=== PATIENT | male | born 1960 | race Caucasian/White ===

== ENCOUNTER 2017-07-20 07:26 | Day surgery (SDC) | payer OTHER ==
[2017-07-17 07:32] VITALS: BMI 25.0
[~2017-07-20 07:26] MED LIST: FLU VACC QS2017-18 36 mo. & older 0.5 ML SYRINGE IM ONE
[2017-07-20 08:07] VITALS: BP 101/64; TEMP 97.6
--- NOTE | 2017-07-20 09:44 | RAD ---
FOUR VIEWS CERVICAL SPINE: DATE: 07/20/17. HISTORY: Radiculopathy. FINDINGS: Four views of the cervical spine demonstrate incompletely imaged midline sternotomy wires and transv enous pacing device. Alignment appears normal on the frontal and lateral imaging. Lateral imaging includes neutral, flexion, and extension views, which demonstrate no anterolisthesis or retrolisthes is and no prevertebral soft tissue swelling. IMPRESSION: No acute osseous abnormality. POS: [facility]
--- NOTE | 2017-07-20 10:00 | RAD ---
FRONTAL AND LATERAL IMAGING OF THORACIC SPINE: Date: 07/20/17 COMPARISON: None. HISTORY: Radiculopathy. FINDINGS: There is a single lead AICD inserted via left-sided approach. Midline sternotomy wires and mediastin al clips, as well as coronary arterial calcification and/or stent material present. There is multile junito mid thoracic spine and lower thoracic spine disc space narrowing, degenerative end plate change, and anterior osteophyte formation. There is no anterolisthesis or retrolisthesis seen. No acute fra cture is noted. IMPRESSION: Mid and lower thoracic spine degenerative change as described above. No acute osseous abnormality no lily. POS: [facility]
--- NOTE | 2017-07-20 10:25 | RAD ---
FOUR VIEWS OF THE LUMBAR SPINE: DATE: 07/20/17. COMPARISON: None. HISTORY: Radiculopathy. FINDINGS: Five lumbar-type vertebral bodies are present. There is atherosclerotic calcification of the abdomi nal aorta. The patient appears status post bilateral laminectomy at L4 and L5. There is no anterolisthesis or retrolisthesis noted within the lumbar spine on neutral, flexion, or extension lateral views. IMPRESSION: No acute osseous abnormality. Postoperative changes noted within the lower lumbar spine. Atheroscl erotic calcification abdominal aorta incidentally noted. POS: [facility]
--- NOTE | 2017-07-20 12:08 | RAD ---
CERVICAL AND THORACIC AND LUMBAR SPINE MYELOGRAM: DATE: 07/20/17. HISTORY: Prior lumbar spine surgery, recent fall, radiculopathy, back pain. FINDINGS: Informed consent for lumbar, thoracic, and cervical spine myelogram obtained prior to the procedure. The patient was placed on the fluoroscopic table in the prone position and the skin overlying the daniel mbar spine was prepped and draped in normal sterile fashion. The skin overlying the L4-5 level was anesthetized with 1% buffered Lidocaine. With intermittent fl uoroscopic guidance, a 22-gauge spinal needle was advanced into the thecal sac and removal of stylet te yields clear cerebrospinal fluid. Subsequently, approximately 12 cc of Isovue 300 was injected, outlining nerve roots of the cauda equ deepak and opacifying the thecal sac. The needle was removed. The patient's head was tilted down to e xtend contrast media into the thoracic and cervical spine regions. The patient tolerated the patien t tolerated the procedure well. EXPOSURE DATA: 3.5 minutes of fluoroscopic time, 1163.8 mGy*\S\m2. IMPRESSION: Successful myelogram of the cervical, thoracic, and lumbar spine. CT myelogram of the total spine pending. POS: [facility]
--- NOTE | 2017-07-20 12:22 | CT ---
CERVICAL SPINE CT MYELOGRAM: Date: 07/20/17 COMPARISON: 09/15/16. HISTORY: Pain, radiculopathy, fall. TECHNIQUE: Following the intrathecal administration of iodinated contrast media, axial CT imaging is obtained a t 2.5 mm intervals from the skull base through the upper thoracic spine. Coronal and sagittal reform atted imaging obtained. FINDINGS: There are stable mild degenerative changes at the atlantoaxial interspace. Cervical vertebral body h eight and alignment is within normal limits. Occipital condyles, dens, C1 ring, and C1-2 articulation appear within normal limits. C2-3: Mild facet hypertrophic change on the left with no central canal or neural foraminal stenosis. C3-4: Mild facet and uncovertebral osteophyte formation on the left with no significant central canal or n eural foraminal stenosis. C4-5: There is a small area of subchondral cystic change associated with the facet joint on the left, sugg esting degenerative change. No significant central canal or neural foraminal stenosis. C5-6: There is a small left paracentral disc protrusion with minimal effacement of the ventral thecal sac leading to no significant central canal or neural foraminal stenosis. There is mild right-sided face t hypertrophy. C6-7: Mild right-sided facet hypertrophy with no significant central canal or neural foraminal stenosis. C7-T1: Mild bilateral facet hypertrophy, left greater than right. No significant central canal or neural fo raminal stenosis. Central lobular and paraseptal emphysematous changes are incidentally noted within the imaged lung a pices. No worrisome lytic or blastic bone lesion. No acute osseous abnormality is seen. There is atherosclerotic calcification involving the right internal carotid artery proximally and th e distal aspect of the left CCA. IMPRESSION: No significant central canal or neural foraminal stenosis. Areas of cervical spine degenerative jay ge as documented above. POS: [facility]
--- NOTE | 2017-07-20 13:26 | CT ---
CT MYELOGRAM OF THORACIC SPINE: DATE: 07/20/17. COMPARISON: 09/15/16. HISTORY: Radiculopathy, pain, and fall. TECHNIQUE: Serial axial CT imaging at 3.75 mm intervals through the thoracic spine following the intrathecal ad ministration of iodinated contrast media. Coronal and sagittal reformatted imaging obtained. FINDINGS: C7-T1: No central canal or neural foraminal stenosis. T1-2: No central canal or neural foraminal stenosis. T2-3: No central canal or neural foraminal stenosis. T3-4: No central canal or neural foraminal stenosis. T4-5: No central canal or neural foraminal stenosis. T5-6: There is disk space narrowing and mild degenerative end plate change with no significant cent ral canal or neural foraminal stenosis. T6-7: Mild degenerative end plate change and anterior osteophyte formation with no significant cent ral canal or neural foraminal stenosis. T7-8: There is disk space narrowing and anterior osteophyte formation. There is mild bilateral fac et hypertrophy, right greater than left. There is no significant central canal or neural foraminal stenosis. T8-9: There is disk space narrowing and anterior osteophyte formation. There is mild bilateral fac et hypertrophy, right greater than left, with no significant central canal or neural foraminal steno sis. T9-10: Mild bilateral facet hypertrophy. Disk space narrowing and anterior osteophyte formation. No significant central canal or neural foraminal stenosis. T10-11: There is disk space narrowing and degenerative end plate change with anterior osteophyte fo rmation and a ventral vacuum disk. Mild bilateral facet hypertrophy. Mild bilateral neural foramin al stenosis. T11-12: There is disk space narrowing with an anterior vacuum disk and osteophyte formation. There is a disk-osteophyte complex which effaces the ventral thecal sac with a mild to moderate degree of central canal stenosis. There is a disk protrusion in the left paracentral region as well. This l eft paracentral disk protrusion causes significant left lateral recess stenosis. The patient is sta tus post bilateral T12 laminectomy since the prior examination. There is partial resection involvin g the inferior aspect of the spinous process of T11 as well since the prior examination. There is a linear lucency involving the pars intraarticularis at T12 bilaterally extending into the superior anterior aspect of the spinous process of T12 as well. This is new when compared to the pr ior examination. This is not definitely postoperative and could actually represent fracture associa lily with prior trauma. Clinical correlation is essential. T12-L1: There is disk space narrowing and mild disk bulge. There is mild bilateral facet hypertrop hy with no significant central canal or neural foraminal stenosis. The imaged lung parenchyma demonstrates scattered areas of bilateral upper lobe central lobular and subpleural emphysematous change. There is an adrenal mass on the right with Hounsfield units between 0 and 5, suggesting an adrenal a denoma. IMPRESSION: Postoperative and degenerative changes seen within the thoracic spine as detailed above. At the T11 -12 level, there is a disk-osteophyte complex with a small associated left paracentral disk protrusi on causing significant left lateral recess stenosis. In addition, there is a fracture involving the T12 pars intraarticularis bilaterally. CODE T POS: [facility]
--- NOTE | 2017-07-20 13:27 | CT ---
CT MYELOGRAM OF THE LUMBAR SPINE: DATE: 07/20/17. COMPARISON: 09/15/16. HISTORY: Pain, recent trauma, lumbar spine surgery since the prior lumbar spine myelogram: TECHNIQUE: Serial axial CT imaging is obtained at 2.5 mm intervals from lower thoracic spine through the inferi or aspect of the sacrum with intrathecal iodinated contrast media. Coronal and sagittal reformatted imaging obtained. FINDINGS: There is an acute fracture involving the anterior superior aspect of the T12 spinous process extendi ng into the pars intraarticularis bilaterally. No associated anterolisthesis or retrolisthesis seen . The conus medullaris terminates at the L1-2 level. T12-L1: Intervertebral disk height appears normal. There is mild bilateral facet hypertrophy with mild right-sided neural foraminal stenosis. No significant central canal or left neural foraminal s tenosis. L1-2: Mild bilateral facet hypertrophy. Mild left neural foraminal stenosis. No central canal or right neural foraminal stenosis. L2-3: Mild bilateral facet hypertrophy. No significant central canal or neural foraminal stenosis. L3-4: Bilateral facet hypertrophy present. Intervertebral disk height appears normal. Mild bilate ral neural foraminal stenosis, left greater than right. L4-5: Since the prior examination, there have been bilateral decompressive laminectomies at L4 and L5. At the L4-5 level, there is disk bulge with a small associated central disk protrusion, slightly les s prominent than on the prior examination. However, following posterior decompression, there is no significant central canal stenosis at L4-5. Mild bilateral neural foraminal stenosis persists. L5-S1: No significant central canal or neural foraminal stenosis. There are scattered atherosclerotic calcifications involving the abdominal aorta and its branches. Punctate calcifications are seen within the pancreas which could reflect change of chronic pancreati tis. IMPRESSION: 1. Postoperative and degenerative change is seen within the lumbar spine. 2. Fracture involving the spinous process and bilateral pars intraarticularis at T12, evidence of a chance-type fracture. This was discussed with Dr. Underwood at 10:00 a.m. 07/20/17. The patient was counseled on the presence of this fracture and, per Dr. Underwood's request, was told to see Dr. Underwood in clinical today to obtain a brace for stabilization. CODE CR POS: [facility]
[2017-07-20] MEDS ORDERED: Iopamidol-M 300 61% 15 ML VIAL ONE (15:50)
== END 2017-07-20 10:55 | disposition home or self-care (01) ==
LOC: RAD 07:26
PROVIDERS: ATTEND Physician Assistant Surgical
PROC: B01B1ZZ Fluoroscopy of Spinal Cord using Low Osmolar Contrast (ICD-10-PCS; principal; 2017-07-20)
DX: M54.12 Radiculopathy, cervical region (principal); M54.16 Radiculopathy, lumbar region; M54.6 Pain in thoracic spine; E11.42 Type 2 diabetes mellitus with diabetic polyneuropathy; I10 Essential (primary) hypertension; E78.5 Hyperlipidemia, unspecified; I25.10 Atherosclerotic heart disease of native coronary artery without angina pectoris; I25.5 Ischemic cardiomyopathy; Z79.82 Long term (current) use of aspirin; Z79.4 Long term (current) use of insulin; Z79.02 Long term (current) use of antithrombotics/antiplatelets; Z79.51 Long term (current) use of inhaled steroids; Z79.899 Other long term (current) drug therapy; Z88.0 Allergy status to penicillin; Z88.8 Allergy status to other drugs, medicaments and biological substances; Z95.1 Presence of aortocoronary bypass graft; Z95.810 Presence of automatic (implantable) cardiac defibrillator; Z98.890 Other specified postprocedural states; Z91.81 History of falling; Z87.891 Personal history of nicotine dependence
CPT/HCPCS: 62305; 72050; 72072; 72120; 72126; 72129; 72132; 90471; 90682; 90732; G0008; G0009; Q2036

== ENCOUNTER 2017-09-13 09:40 | Emergency (ER) | payer OTHER ==
[2017-09-13 10:19] LABS: #Eosinphils 0.1 thou/uL (0.0-0.7); #Lymphocytes 2.9 thou/uL (1.20-3.40); #Monocytes 0.8 thou/uL (0.11-0.59); #Neutrophils 7.2 thou/uL (1.40-6.50); %Basophils 0.4 % (0.0-1.0); %Eosinophils 0.9 % (0.0-10.0); %Lymphocytes 26.2 % (21.0-51.0); %Monocytes 7.5 % (0.0-10.0); %Neutrophils 64.9 % (42.0-75.0); Hemoglobin 14.5 g/dL (14.0-18.0); Mean Corpuscular HGB CONC 33.9 g/dL (32.0-36.0); Mean Corpuscular Hemoglobin 31.8 pg (27.0-31.0); Mean Corpuscular Volume 93.9 fl (80.0-94.0); Mean Platelet Volume 8.8 fL (7.4-10.4); Platelet Count 176 thou/uL (130-400); RBC Distribution Width 12.2 % (11.5-14.5); Red Blood Cell (RBC) Count 4.54 mill/uL (4.70-6.10)
[2017-09-13 10:26] LABS: PTT 24.9 SEC (22.9-36.1); Prothrombin Time 13.5 SEC (12.0-14.7)
[2017-09-13 10:39] LABS: ALT (SGPT) 17 U/L (8-55); AST (SGOT) 11 U/L (5-34); Albumin 4.2 g/dL (3.5-5.0); Alkaline Phosphatase 132 U/L (40-150); Anion Gap 13 mmol/L (10-20); BUN (Urea Nitrogen) 27 mg/dL (8.4-25.7); Bilirubin, Total 0.6 mg/dL (0.2-1.2); CK (CPK) 43 U/L (30-200); Calc. Creatinine Clearance 0 mL/min (70-130); Calcium 9.6 mg/dL (7.8-10.44); Carbon Dioxide 27 mmol/L (22-29); Chloride 100 mmol/L (98-107); Estimated GFR-MDRD 89; Globulin 2.7 g/dL (2.4-3.5); Glucose 287 mg/dL (70-105); Potassium 3.9 mmol/L (3.5-5.1); Protein, Total 6.9 g/dL (6.0-8.3); Sodium 136 mmol/L (136-145)
[2017-09-13 10:43] LABS: CKMB 1.3 ng/mL (0-6.6); Troponin I 0.106 ng/mL (< 0.028)
[2017-09-13] MEDS ORDERED: Acetaminophen 500 MG TAB ONE (12:01)
--- NOTE | 2017-09-13 12:07 | RAD ---
PORTABLE CHEST: HISTORY: Chest pain. COMPARISON: 04/19/2017 FINDINGS: The lungs are clear. No infiltrate. Heart size is normal. Postop sternotomy change. AICD lead not ed. IMPRESSION: No acute abnormality. No interval change. POS: [facility]
[2017-09-13 13:37] LABS: Troponin I 0.107 ng/mL (< 0.028)
--- NOTE | 2017-10-03 22:00 | EKG ---
Test Reason : Blood Pressure : / mmHG Vent. Rate : 070 BPM Atrial Rate : 070 BPM P-R Int : 136 ms QRS Dur : 114 ms QT Int : 402 ms P-R-T Axes : 056 049 137 degrees QTc Int : 434 ms Normal sinus rhythm Possible Left atrial enlargement Possible Inferior infarct , age undetermined Abnormal ECG Confirmed by KAYLENE CHUNG ([id number]), commercial production editor KENNA PHAN ([id number]) on 10/03/2017 9:59:43 PM Referred By: Confirmed By:KAYLENE CHUNG
--- NOTE | 2017-10-03 22:00 | EKG ---
Test Reason : Blood Pressure : / mmHG Vent. Rate : 054 BPM Atrial Rate : 054 BPM P-R Int : 140 ms QRS Dur : 114 ms QT Int : 440 ms P-R-T Axes : 037 048 150 degrees QTc Int : 417 ms Sinus bradycardia Possible Left atrial enlargement Possible Inferior infarct , age undetermined Abnormal ECG Confirmed by KAYLENE CHUNG ([id number]), science editor KENNA PHAN ([id number]) on 10/03/2017 9:59:46 PM Referred By: Confirmed By:KAYLENE CHUNG
== END 2017-09-13 14:29 | disposition home or self-care (01) ==
LOC: ERS 09:40
DX: R07.89 Other chest pain (principal); R79.89 Other specified abnormal findings of blood chemistry; E11.9 Type 2 diabetes mellitus without complications; E78.5 Hyperlipidemia, unspecified; I10 Essential (primary) hypertension; I25.2 Old myocardial infarction; F41.9 Anxiety disorder, unspecified; F43.10 Post-traumatic stress disorder, unspecified; F17.210 Nicotine dependence, cigarettes, uncomplicated
CPT/HCPCS: 36415; 71045; 80053; 82550; 82553; 84484; 85025; 85610; 85730; 93005; 94760

== ENCOUNTER 2017-10-05 09:30 | Emergency (ER) | payer OTHER | END 2017-10-05 09:53 | disposition left against medical advice (07) | LOC: ERS 09:30 | DX: Z53.21 Procedure and treatment not carried out due to patient leaving prior to being seen by health care provider (principal) ==

== ENCOUNTER 2017-11-09 14:04 | Outpatient (CLI) | payer OTHER ==
--- NOTE | 2017-11-09 16:55 | RAD ---
THORACIC SPINE FOUR VIEWS: History: Follow up T12 fracture. Comparison: 07-20-17 FINDINGS: Mild wedging of the lower thoracic vertebrae again noted. Mild wedging appears to represent physiolog ic degenerative changes and involves T9-T12. There are moderate anterior osteophytes at these levels. The changes at these lower thoracic vertebrae appear stable from 07-20-17. IMPRESSION: There are large degenerative changes in the mid and thoracic spine with mild anterior wedging of ganga ral lower thoracic vertebrae which appears stable from 07-20-17. POS: [facility]
== END 2017-11-09 14:05 | disposition home or self-care (01) ==
LOC: TBSIIMAG 14:04
PROVIDERS: ATTEND Surgery
DX: M54.5 Low back pain (principal); M47.894 Other spondylosis, thoracic region; M48.54XD Collapsed vertebra, not elsewhere classified, thoracic region, subsequent encounter for fracture with routine healing
CPT/HCPCS: 72072

== ENCOUNTER 2018-01-04 14:29 | Observation (INO) | payer OTHER ==
[2018-01-04 15:01] LABS: #Eosinphils 0.2 thou/uL (0.0-0.7); #Lymphocytes 1.7 thou/uL (1.20-3.40); #Monocytes 0.5 thou/uL (0.11-0.59); #Neutrophils 4.8 thou/uL (1.40-6.50); %Basophils 0.4 % (0.0-1.0); %Eosinophils 3.4 % (0.0-10.0); %Lymphocytes 23.3 % (21.0-51.0); %Neutrophils 65.9 % (42.0-75.0); Hemoglobin 14.7 g/dL (14.0-18.0); Mean Corpuscular HGB CONC 34.9 g/dL (32.0-36.0); Mean Corpuscular Hemoglobin 32.2 pg (27.0-31.0); Mean Corpuscular Volume 92.4 fl (80.0-94.0); Mean Platelet Volume 8.4 fL (7.4-10.4); Platelet Count 197 thou/uL (130-400); RBC Distribution Width 12.6 % (11.5-14.5); Red Blood Cell (RBC) Count 4.57 mill/uL (4.70-6.10); White Blood Cell (WBC) Count 7.3 thou/uL (4.8-10.8)
[2018-01-04 15:25] LABS: CKMB 1.6 ng/mL (0-6.6); Troponin I Less than 0.010 ng/mL (< 0.028)
[2018-01-04 15:29] LABS: ALT (SGPT) 13 U/L (8-55); AST (SGOT) 14 U/L (5-34); Albumin 4.2 g/dL (3.5-5.0); Alkaline Phosphatase 140 U/L (40-150); Anion Gap 15 mmol/L (10-20); BUN (Urea Nitrogen) 19 mg/dL (8.4-25.7); Bilirubin, Total 0.4 mg/dL (0.2-1.2); CK (CPK) 122 U/L (30-200); Calc. Creatinine Clearance 0 mL/min (70-130); Calcium 9.3 mg/dL (7.8-10.44); Carbon Dioxide 23 mmol/L (22-29); Chloride 104 mmol/L (98-107); Estimated GFR-MDRD 84; Globulin 3.2 g/dL (2.4-3.5); Glucose 239 mg/dL (70-105); Potassium 4.3 mmol/L (3.5-5.1); Protein, Total 7.4 g/dL (6.0-8.3); Sodium 138 mmol/L (136-145)
--- NOTE | 2018-01-04 15:32 | RAD ---
PA AND LATERAL OF THE CHEST: INDICATION: A 57-year-old male with chest pain. COMPARISON: Prior single view of the chest dated 09/13/17. FINDINGS: The single-lead AICD is unchanged. Midline sternotomy changes are stable. Heart size is normal. No acute airspace opacity, pleural effusion, or pneumothorax is demonstrated. There is multilevel spon dylosis of the thoracic spine. IMPRESSION: No acute cardiopulmonary abnormality. POS: [facility]
[2018-01-04 18:35] LABS: Troponin I Less than 0.010 ng/mL (< 0.028)
[2018-01-04 18:42] VITALS: BMI 25.4
[2018-01-04] MEDS ORDERED: Dextrose 50% Abboject 50 ML SYRINGE SLOW IVP PRN (19:01)
[2018-01-04] MEDS ORDERED: Senokot 8.6 MG TAB PO PRN (19:01)
[2018-01-04] MEDS ORDERED: PROVENTIL INHALER 6.7 G (200 INHALATIONS) INH PRN (19:01)
[2018-01-04] MEDS ORDERED: Acetaminophen 325 MG TAB PO PRN (19:01)
[2018-01-04] MEDS ORDERED: HumaLOG 300 UNITS/3 ML VIAL SC PRN ×2 (19:01)
[2018-01-04] MEDS ORDERED: Dextrose 5% in Water 1,000 ML IV PRN (19:01)
[2018-01-04] MEDS ORDERED: Guaifenesin DM 100-10/5 ML UDCUP PO PRN (19:01)
[2018-01-04] MEDS ORDERED: HYDROcodone/Acetaminophen 10/325 mg Tablet PO PRN (19:01)
[2018-01-04] MEDS ORDERED: PRE FILLED SC SCH (21:00)
[2018-01-04] MEDS ORDERED: Atorvastatin Calcium 40 MG TAB PO SCH (21:00)
[2018-01-04] MEDS ORDERED: INSULIN DETEMIR SC SCH (21:00)
[2018-01-04] MEDS ORDERED: clonazePAM 0.5 MG TAB PO SCH (21:00)
[2018-01-04] MEDS ORDERED: LEVEMIR 22 UNIT SC SCH (21:00)
[2018-01-04] MEDS ORDERED: traZODone HCl 50 MG TAB PO SCH (21:00)
[2018-01-04] MEDS: Famotidine 20 MG TAB PO SCH (21:03)
[2018-01-04 22:07] LABS: Troponin I 0.013 ng/mL (< 0.028)
--- NOTE | 2018-01-05 00:25 | HP ---
REASON FOR ADMISSION: Chest pain. HISTORY OF PRESENT ILLNESS: The patient gives history of walking back from his trailer house, which he is remodeling, to his home and developed retrosternal chest pain. This was radiating to the neck and his chin. He tried taking a nitroglycerin tablet sublingual with no relief. He took two more 5 minutes apart with mild relief. He finally called EMS and the patient was brought here. En route, EMS had to give him lidocaine IV push and had to place him on a drip for abnormal rhythm per the patient. I do not see the EMS strips accompanying the patient's chart. The patient says he felt like his heart beat was skipping in between when this happened. He is off lidocaine drip on arrival in the ER. Currently, he is chest-pain free. The patient sees Dr. Carolina and he was spoken to by the ER physician, Dr. Segura. The patient has prior history of CABG and has multiple-vessel disease, and Dr. Carolina would like to see him in the morning. No complaints of shortness of breath or PND. The patient has a history of chronic cough due to his smoking habit. He continues to smoke half pack a day. PAST MEDICAL AND SURGICAL HISTORY: History of CABG done 7 years back per the patient; prior cardiac catheterization done in 02/[address] Carolina and showed severe multivessel disease, LAD had 100% proximal occlusion, OM had 100% proximal occlusion, RCA had 100% occlusion, LARES to LAD was patent with back filling of the D2 branch, saphenous vein graft to D1 branch was patent, saphenous vein graft to suspected OM branch is occluded, there is also 70% proximal stenosis of the subclavian artery and may be causing ischemia to the LAD distribution, there was an 80 mm gradient present in the subclavian artery; diabetes mellitus type 2; coronary artery disease; chronic tobacco abuse; ischemic cardiomyopathy; AICD; right shoulder surgery; bilateral carpal tunnel surgery; had a T12 fracture a year back; back surgeries x2; elbow surgery; dyslipidemia. PERSONAL HISTORY: Smokes half pack a day. Does not abuse alcohol or drugs. Lives with his fiancee. FAMILY HISTORY: Mother at the age of 72 years. She has had history of coronary artery disease. Father at the age of 48 years. He was exposed to Agent [place] and had side effects from the same. ALLERGIES: Allergic to PENICILLIN and METFORMIN. CURRENT MEDICATIONS: Please note, the patient does not recall all his medications and wants us to refer to [employer] Aspirin 81 mg daily, Lipitor 80 mg p.o. at bedtime, baclofen 10 mg 3 times daily, Coreg 3.125 mg daily, cetirizine 10 mg daily, clonazepam 0.5 mg p.o. at bedtime, Plavix 75 mg p.o. daily, Humalog 15 units subcu 3 times daily, Levemir 25 units subcu q.a.m. and 22 units subcu at bedtime, Imdur extended release 30 mg p.o. daily, [place] 10/ 325 mg twice daily p.r.n., lisinopril 5 mg daily, Protonix 40 mg daily, prazosin 1 mg daily, Lyrica 150 mg 3 times daily, Risperdal 2 mg at bedtime, Requip extended release 0.5 mg at bedtime, trazodone 100 mg p.o. at bedtime. REVIEW OF SYSTEMS: The following complete review of systems was negative, unless otherwise mentioned in the HPI or below: Constitutional: Weight loss or gain, ability to conduct usual activities. Skin: Rash, itching. Eyes: Double vision, pain. ENT/Mouth: Nose bleeding, neck stiffness, pain, tenderness. Cardiovascular: Palpitations, dyspnea on exertion, orthopnea. Respiratory: Shortness of breath, wheezing, cough, hemoptysis, fever or night sweats. Gastrointestinal: Poor appetite, abdominal pain, heartburn, nausea, vomiting, constipation, or diarrhea. Genitourinary: Urgency, frequency, dysuria, nocturia. Musculoskeletal: Pain, swelling. Neurologic/Psychiatric: Anxiety, depression. Allergy/Immunologic: Skin rash, bleeding tendency. PHYSICAL EXAMINATION: GENERAL: The patient is a 57-year-old male who is currently not in any acute distress. VITAL SIGNS: Blood pressure 140/70, pulse 70 per minute, respiratory rate 18 per minute, temperature 97.6 degrees Fahrenheit, saturating 99% on room air. NECK: Supple. No elevated JVD. HEENT: Eyes, extraocular muscles intact. Pupils are reacting to light. Oral cavity, mucous membranes are dry. No exudates or congestion. CARDIOVASCULAR: S1, S2 heard. Regular rhythm. RESPIRATORY: Air entry 1+ bilateral. Scattered rhonchi plus. No rales. ABDOMEN: Soft. Bowel sounds heard. No tenderness, rigidity, or guarding. EXTREMITIES: No peripheral edema or calf tenderness. VASCULAR SYSTEM: Peripheral pulses 1+ bilateral. No ischemic ulcerations or gangrene. CENTRAL NERVOUS SYSTEM: No gross focal deficit seen. The patient is alert, awake, and oriented well. PSYCHIATRIC: The patient's mood is euthymic. No hallucinations or delusions. LABORATORY AND X-RAY FINDINGS: EKG done shows normal sinus rhythm at 64 beats per minute. QRS duration is 118 milliseconds, corrected QT interval is 425 milliseconds. There is poor R-wave progression. White count of 7, H&H 14 and 42, platelet count 197, MCV is 92 with 65% neutrophils. Electrolytes are stable. BUN 19, creatinine 0.9, glucose 239. Troponin x2 is negative. CK level is 122, CK-MB 1.6, albumin is 4.2. Chest x-ray done shows no acute cardiopulmonary abnormality. CLINICAL IMPRESSION AND PLAN: The patient will be under observation on telemetry for chest pain, rule out acute coronary syndrome. The patient has known history of coronary artery disease with prior CABG and multivessel coronary artery disease for medical therapy. He has had coronary angiogram done in 02/2016, which I have described above in the past medical history. We will keep him n.p.o. after midnight. If the patient were to develop chest pain , he likely will need angiogram. He has had a stress test done in 04/2017, which showed global hypokinesis with inferior wall akinesis. There was a large lateral and inferior wall scar with ton-infarct ischemia of the lateral wall. His EF was 20%-30% on the stress test. The patient will be placed on aspirin, Plavix, small dose of Coreg, lisinopril as before. He will also be on Imdur. We will continue his trazodone at bedtime; [place]; Levemir, home dose; and Pepcid 20 mg twice daily. The patient's home medications will be confirmed with his pharmacy in the morning. We will obtain pacemaker printout to see what really happened when EMS went to pick him up, with them giving a dose of lidocaine IV push, then placing him on lidocaine drip. It is unclear at present and we will closely follow up on that. [facility]
[2018-01-05 04:29] LABS: #Basophils 0.1 thou/uL (0.0-0.2); #Eosinphils 0.3 thou/uL (0.0-0.7); #Lymphocytes 1.9 thou/uL (1.20-3.40); #Monocytes 0.5 thou/uL (0.11-0.59); %Basophils 0.9 % (0.0-1.0); %Eosinophils 4.8 % (0.0-10.0); %Lymphocytes 28.2 % (21.0-51.0); %Monocytes 7.9 % (0.0-10.0); %Neutrophils 58.3 % (42.0-75.0); Hemoglobin 14.5 g/dL (14.0-18.0); Mean Corpuscular Hemoglobin 31.3 pg (27.0-31.0); Mean Corpuscular Volume 91.8 fl (80.0-94.0); Mean Platelet Volume 8.4 fL (7.4-10.4); Platelet Count 169 thou/uL (130-400); RBC Distribution Width 12.7 % (11.5-14.5); Red Blood Cell (RBC) Count 4.64 mill/uL (4.70-6.10); White Blood Cell (WBC) Count 6.8 thou/uL (4.8-10.8)
[2018-01-05 04:47] LABS: Anion Gap 12 mmol/L (10-20); BUN (Urea Nitrogen) 18 mg/dL (8.4-25.7); Calc. Creatinine Clearance 119 mL/min (70-130); Calcium 8.9 mg/dL (7.8-10.44); Carbon Dioxide 23 mmol/L (22-29); Chloride 109 mmol/L (98-107); Estimated GFR-MDRD Greater than 90; Glucose 87 mg/dL (70-105); Potassium 3.9 mmol/L (3.5-5.1); Sodium 140 mmol/L (136-145)
[2018-01-05] MEDS ORDERED: Carvedilol 3.125 MG TAB PO SCH (08:00)
[2018-01-05] MEDS ORDERED: Non-Formulary Item 1 EACH (Levemir Flexpen [Levemir Flexpen] 25 UNIT) SC SCH (09:00)
[2018-01-05] MEDS ORDERED: Lisinopril 5 MG TAB PO SCH (09:00)
[2018-01-05] MEDS ORDERED: Clopidogrel Bisulfate 75 MG TAB PO SCH (09:00)
[2018-01-05] MEDS ORDERED: Aspirin 81 mg Enteric Coated Tablet PO SCH (09:00)
[2018-01-05] MEDS ORDERED: Insulin Detemir 100 UNITS/ML 25 UNITS in Pre-Filled Syringe SC SCH (09:00)
[2018-01-05] MEDS ORDERED: Prazosin HCl 1 MG CAP PO SCH (09:00)
[2018-01-05] MEDS ORDERED: Enoxaparin Sodium 40 MG/0.4 ML SYRINGE SC SCH (09:00)
[2018-01-05] MEDS: Famotidine 20 MG TAB PO SCH (09:05)
[2018-01-05] MEDS ORDERED: Carvedilol 6.25 MG TAB PO SCH ×2 (09:15→17:00)
--- NOTE | 2018-01-05 09:18 | CON ---
DATE OF CONSULTATION: 01/05/2018 REASON FOR CONSULTATION: Chest pain. HISTORY OF PRESENT ILLNESS: Mr. Whitfield is an unfortunate 57-year-old male with a history of CAD st atus bypass surgery. I recently reviewed his films. He has a LARES to the LAD that is patent. His s aphenous vein graft to the OM branch is occluded. Saphenous vein graft to the right coronary artery is occluded. He has occluded right and circumflex artery. He also had severe stenosis of the subcla vian artery that involved the vertebral artery. Unfortunately, Mr. Whitfield continues to smoke. Mr. Whitfield recently presented with chest pain. It was described as moderate to severe. He took 3 sublingual nitroglycerins without improvement; therefore called EMS. There is a history of a rhythm disturbance noted while in the ambulance. He was given lidocaine. He is currently chest pain free n ow. PAST MEDICAL HISTORY: CAD status post bypass surgery, subclavian stenosis, tobacco abuse, ischemic c ardiomyopathy, ICD placement, hypertension, hyperlipidemia, diabetes mellitus, shoulder surgery, carp al tunnel release. FAMILY HISTORY: Positive for CAD. SOCIAL HISTORY: As above. ALLERGIES: PENICILLIN, METFORMIN. HOME MEDICATIONS: Klonopin, lisinopril, trazodone, carvedilol, simvastatin, Protonix, Requip, Imdur , albuterol, metoprolol. REVIEW OF SYSTEMS: Ten point review of systems is reviewed and is as above, otherwise negative. PHYSICAL EXAMINATION: VITAL SIGNS: Blood pressure 126/56, pulse 70, temperature 97.6. GENERAL: Patient is a pleasant male who is in no acute distress. The patient appears his stated age. NEUROLOGIC: The patient is alert and oriented times 3 with no focal neurologic deficits. HEENT: Sclerae without icterus. Mouth has moist mucous membranes with normal pallor. NECK: No JVD. Carotid upstroke brisk. No bruits bilaterally. LUNGS: Clear to auscultation with unlabored respirations. BACK: No scoliosis or kyphosis. CARDIAC: Regular rate and rhythm with normal S1 and S2. No S3 or S4 noted. No significant rubs, mur murs, thrills, or gallops noted throughout the precordium. PMI is not displaced. There is no parast ernal heave. ABDOMEN: Soft, nontender, nondistended. No peritoneal signs present. No hepatosplenomegaly. No abn ormal striae. EXTREMITIES: 2+ femoral and 2+ dorsalis pedis pulses. No cyanosis, clubbing, or edema. SKIN: No gross abnormalities. PERTINENT LABS: CK and troponin negative. Hemoglobin 14.5. IMPRESSION: 1. Chronic stable angina. 2. Tobacco abuse. 3. Coronary artery disease. 4. Ischemic cardiomyopathy. RECOMMENDATIONS: Unfortunately there are no good options for Mr. Whitfield. I am uncertain on where his pain is coming from. I did review his films today. He has complete occlusion of the right harshil nary artery with no vein graft present. This is not approachable percutaneously. He also has a comp letely occluded circumflex artery with a complete occlusion of a previous stent. There is no graft p resent to this area. He also had severe stenosis to the subclavian artery. After reviewing his stre ss study, there was no ischemia present to the anterior wall and mainly scar and ton-infarct ischemi a to the inferior and lateral wall which corresponds to the right coronary artery and circumflex cesilia ry distribution. At this point, would recommend medical therapy. I do not feel proceeding with a st ent placement to the subclavian artery would be of much benefit. This would also gel a vertebral art chapito, there appears to be within the area of concern and also has ostial disease. It would be a risk of closure of the vertebral artery. We will also interrogate his ICD. Increase carvedilol to 6.25 b .i.d. Continue Plavix, aspirin and increase isosorbide to 60 mg daily.
--- NOTE | 2018-01-05 13:31 | PDOC.PN ---
- Subjective Encounter Start Date: 01/05/18 Encounter Start Time: 13:29 Mr. Whitfield was seen today in follow-up. He does not have any complaints except that he has " no energy". He denies chest pain. - Objective Resuscitation Status: Resuscitation Status FULL:Full Resuscitation MAR Reviewed: Yes Vital Signs & Weight: Vital Signs (12 hours) Temp Pulse Resp BP BP Pulse Ox 01/05/18 11:40 97.9 F 66 12 117/59 L 92 L 01/05/18 09:26 126/59 L 01/05/18 09:05 70 01/05/18 08:01 97.6 F 70 16 126/56 L 94 L 01/05/18 07:32 97.9 F 69 12 01/05/18 04:10 97.9 F 69 12 110/59 L 94 L Weight Weight 161 lb 11.2 oz I&O: 01/04/18 01/05/18 01/06/18 06:59 06:59 06:59 Intake Total 0 Output Total 0 Balance 0 Result Diagrams: 01/05/18 04:12 01/05/18 04:12 Additional Labs: Accuchecks 01/05/18 01/04/18 11:53 22:25 POC Glucose 215 H 293 H Phys Exam - Physical Examination HEENT: PERRLA Respiratory: no wheezing, no rales, no rhonchi, clear to auscultation bilateral Cardiovascular: RRR, no significant murmur, no rub Gastrointestinal: soft, non-tender, no distention, positive bowel sounds Musculoskeletal: no edema Dx/Plan (1) Angina at rest Code(s): I20.8 - OTHER FORMS OF ANGINA PECTORIS Status: Acute (2) Coronary artery disease Code(s): I25.10 - ATHSCL HEART DISEASE OF [place] CORONARY ARTERY W/O ANG PCTRS Status: Acute (3) Hyperlipidemia Code(s): E78.5 - HYPERLIPIDEMIA, UNSPECIFIED Status: Chronic (4) Hypertension Code(s): I10 - ESSENTIAL (PRIMARY) HYPERTENSION Status: Chronic - Plan * CAD- Cardiology evaluation appreciated * Patient is stable for discharge on adjusted medications..
[2018-01-05 15:47] VITALS: BP 112/57; TEMP 98
--- NOTE | 2018-01-05 21:33 | DIS ---
PRIMARY CARE PHYSICIAN: TYREE Gayle. DATE OF ADMISSION: 01/04/2018 DATE OF DISCHARGE: 01/05/2018 DISCHARGE DISPOSITION: Home. PRIMARY DISCHARGE DIAGNOSES: 1. Coronary artery disease. 2. Hypertension. 3. Dyslipidemia. DISCHARGE MEDICATIONS: The patient's medications were slightly adjusted. His Coreg dose was increas ed to 6.25 mg daily, Imdur was increased from 30 to 60 mg daily. He is to continue trazodone 150 mg at bedtime, Requip 0.5 mg at bedtime, Lyrica 150 mg at bedtime, Protonix 40 mg daily, lisinopril 5 mg daily, Levemir 18 units twice a day, [place] 10/325 t.i.d. as needed, Flonase nasal spray daily, Plavi x 75 mg daily, clonazepam 1 mg at bedtime, Zyrtec 10 mg daily, Soma 350 mg twice a day as needed, Lip itor 80 mg at bedtime, aspirin 81 mg daily, and ProAir inhaler 2 puffs as needed. CODE STATUS: FULL CODE. ALLERGIES: PENICILLIN and METFORMIN. HOSPITAL COURSE: Mr. Whitfield is a pleasant 57-year-old gentleman that presented to the emergency ro om with complaints of chest pain. He has known multivessel coronary artery disease. He was placed i n observation and evaluated by his fbi profiler. The patient has a history of a completely occluded circumflex graft and an occlusion of a previous stent. He also has severe occlusion of the subclavia n and he has a complete occlusion of the right coronary artery with no graft present. Unfortunately, he is not amenable to any invasive procedures and medical management was recommended. Therefore, Im dur was increased as well as carvedilol. The patient at the time of discharge was clinically improve d and will be discharged home with close outpatient followup.
== END 2018-01-05 16:09 | disposition home or self-care (01) ==
LOC: ERS 14:29 → 2SW 18:06
PROVIDERS: ADMIT Internal Medicine; ATTEND Internal Medicine
DX: I25.10 Atherosclerotic heart disease of native coronary artery without angina pectoris (principal); I10 Essential (primary) hypertension; E78.5 Hyperlipidemia, unspecified; E11.9 Type 2 diabetes mellitus without complications; I25.5 Ischemic cardiomyopathy; F17.210 Nicotine dependence, cigarettes, uncomplicated; Z88.0 Allergy status to penicillin; Z88.8 Allergy status to other drugs, medicaments and biological substances; Z95.1 Presence of aortocoronary bypass graft; Z95.810 Presence of automatic (implantable) cardiac defibrillator; Z98.890 Other specified postprocedural states; Z82.49 Family history of ischemic heart disease and other diseases of the circulatory system
CPT/HCPCS: 36415; 36416; 71046; 80048; 80053; 82550; 82553; 84484; 85025; 93005; G0378; J1815

== ENCOUNTER 2018-02-08 12:20 | Emergency (ER) | payer OTHER ==
[2018-02-08 12:38] LABS: #Eosinphils 0.1 thou/uL (0.0-0.7); #Lymphocytes 1.9 thou/uL (1.20-3.40); #Monocytes 0.7 thou/uL (0.11-0.59); %Basophils 0.5 % (0.0-1.0); %Eosinophils 1.7 % (0.0-10.0); %Lymphocytes 21.2 % (21.0-51.0); %Monocytes 8.2 % (0.0-10.0); %Neutrophils 68.5 % (42.0-75.0); Mean Corpuscular HGB CONC 34.5 g/dL (32.0-36.0); Mean Corpuscular Hemoglobin 31.6 pg (27.0-31.0); Mean Corpuscular Volume 91.5 fl (80.0-94.0); Mean Platelet Volume 8.5 fL (7.4-10.4); Platelet Count 195 thou/uL (130-400); RBC Distribution Width 12.3 % (11.5-14.5); Red Blood Cell (RBC) Count 4.75 mill/uL (4.70-6.10); White Blood Cell (WBC) Count 8.7 thou/uL (4.8-10.8)
[2018-02-08] MEDS ORDERED: Lidocaine Viscous Sol 2% 15 ml UD Cup ONE (12:41)
[2018-02-08] MEDS ORDERED: Mag-Al 1200 mg/1200 mg/30 ML UDCUP ONE (12:41)
[2018-02-08] MEDS ORDERED: Pantoprazole 40 MG VIAL ONE (12:41)
[2018-02-08 13:02] LABS: ALT (SGPT) 13 U/L (8-55); AST (SGOT) 13 U/L (5-34); Albumin 4.2 g/dL (3.5-5.0); Alkaline Phosphatase 135 U/L (40-150); Anion Gap 11 mmol/L (10-20); BUN (Urea Nitrogen) 14 mg/dL (8.4-25.7); Bilirubin, Total 0.4 mg/dL (0.2-1.2); Calc. Creatinine Clearance 0 mL/min (70-130); Calcium 9.4 mg/dL (7.8-10.44); Carbon Dioxide 25 mmol/L (22-29); Chloride 104 mmol/L (98-107); Estimated GFR-MDRD Greater than 90; Globulin 2.8 g/dL (2.4-3.5); Glucose 262 mg/dL (70-105); Lipase 16 U/L (8-78); Potassium 3.9 mmol/L (3.5-5.1); Sodium 136 mmol/L (136-145)
[2018-02-08 13:05] LABS: CKMB 1.9 ng/mL (0-6.6); Troponin I Less than 0.010 ng/mL (< 0.028)
[2018-02-08 13:35] LABS: Bilirubin Negative (Negative); Blood, Urine Negative (Negative); Clarity CLEAR (Clear); Glucose, Urine (Dipstick) >=1000 mg/dL (Negative); Leukocyte Negative (Negative); Nitrite Negative (Negative); Protein, Urine (Dipstick) Negative (Neg-Trace); Specific Gravity, Urine 1.021 (1.002-1.036); Urobilinogen 0.2 mg/dL (0.2-1.0); pH, Urine 6.5 (5.0-9.0)
--- NOTE | 2018-02-08 13:55 | ULT ---
RIGHT UPPER QUADRANT ULTRASOUND: Date: 02/08/18 COMPARISON: None. HISTORY: 57-year-old male with right upper quadrant pain for 1 month. TECHNIQUE: Multiplanar Warren scale sonographic imaging of the right upper quadrant provided. FINDINGS: Secondary to bowel gas, the pancreas and the left lobe of the liver are not well assessed. Imaged por tions of the liver demonstrate no focal lesion or biliary dilatation. The common bile duct measures 3.0 mm, within normal limits. The right kidney measures 11.6 cm in craniocaudal dimension and demonstrates no stone, hydronephrosis , or mass. The gallbladder is contracted, somewhat limiting assessment. No gallstones, pericholecystic fluid, or gallbladder wall thickening. CBD measures approximately 3.0 mm. IMPRESSION: Limited assessment of the right upper quadrant secondary to bowel gas. The gallbladder is contracted, further limiting assessment. No biliary dilation or gallstones are seen. POS: [facility]
== END 2018-02-08 13:56 | disposition home or self-care (01) ==
LOC: ERS 12:20
DX: K29.70 Gastritis, unspecified, without bleeding (principal); K21.9 Gastro-esophageal reflux disease without esophagitis; E11.40 Type 2 diabetes mellitus with diabetic neuropathy, unspecified; E78.5 Hyperlipidemia, unspecified; F41.9 Anxiety disorder, unspecified; F43.10 Post-traumatic stress disorder, unspecified; F17.210 Nicotine dependence, cigarettes, uncomplicated; I48.91 Unspecified atrial fibrillation; I10 Essential (primary) hypertension; I25.2 Old myocardial infarction; Z79.4 Long term (current) use of insulin; Z79.82 Long term (current) use of aspirin; Z79.899 Other long term (current) drug therapy
CPT/HCPCS: 76705; 80053; 81003; 82553; 83690; 84484; 85025; 93005; 96374; C9113

== ENCOUNTER 2018-05-02 14:15 | Emergency (ER) | payer OTHER | END 2018-05-02 14:38 | disposition left against medical advice (07) | LOC: ERS 14:15 | DX: Z53.21 Procedure and treatment not carried out due to patient leaving prior to being seen by health care provider (principal) ==

== ENCOUNTER 2018-06-30 11:58 | Emergency (ER) | payer OTHER ==
[2018-06-30] MEDS ORDERED: Fluorescein Opthalmic Strip ONE (14:17)
[2018-06-30] MEDS ORDERED: HYDROcodone/Acetaminophen 5/325 mg Tablet ONE (14:17)
[2018-06-30] MEDS ORDERED: Proparacaine 0.5% Opth 15 ML BOT ONE (14:17)
--- NOTE | 2018-06-30 15:38 | CT ---
CT ORBITS: Technique: Axial images were obtained with coronal and sagittal reconstructions. History: Trauma to left eye. FINDINGS: A small amount of soft tissue swelling is seen surrounding the left orbit. No evidence of acute left orbital fractures or bony lesions seen. The maxilla and nasal bones are unr emarkable. The sinuses are well aerated. IMPRESSION: No evidence of orbital fractures. The maxilla is also intact with no evidence of fractures. POS: [facility]
== END 2018-06-30 15:54 | disposition home or self-care (01) ==
LOC: ERS 11:58
DX: S05.02XA Injury of conjunctiva and corneal abrasion without foreign body, left eye, initial encounter (principal); I10 Essential (primary) hypertension; E78.00 Pure hypercholesterolemia, unspecified; E11.9 Type 2 diabetes mellitus without complications; F17.210 Nicotine dependence, cigarettes, uncomplicated; I25.2 Old myocardial infarction; Z79.899 Other long term (current) drug therapy; Z79.82 Long term (current) use of aspirin; W22.8XXA Striking against or struck by other objects, initial encounter
CPT/HCPCS: 70480